=== PATIENT | female | born 1980 | race Caucasian/White ===

== ENCOUNTER 2018-01-26 15:23 | Emergency (ER) | payer OTHER ==
[2018-01-26] MEDS ORDERED: SODIUM CHLORIDE 0.9% 1,000 ML IV ONE (16:31)
[2018-01-26] MEDS ORDERED: diphenhydrAMINE 50 MG/ML 1 ML VIAL IVP STA (16:31)
[2018-01-26] MEDS ORDERED: KETOROLAC 30 MG/ML 1 ML VIAL IVP STA (16:31)
[2018-01-26] MEDS ORDERED: METOCLOPRAMIDE 5 MG/ML 2 ML VIAL IVP STA (16:31)
--- NOTE | 2018-01-26 16:55 | ED ---
Headache HPI - General Chief Complaint: Headache Stated Complaint: Migraine Time Seen by Provider: 01/26/18 16:20 Source: patient, RN notes reviewed Mode of arrival: ambulatory Limitations: no limitations - History of Present Illness Initial Comments: This a 37-year-old female presents emergency Department chief complaint of a headache. Patient states she has history of migraines and seizures. Patient states that she did try her Imitrex and multiple other her car medications no relief. She states it feels that her typical migraine headache which is more diffuse in nature. Denies any fever, chills or neck stiffness. Patient states that she has had nausea and vomiting. Patient states that she has not seen a neurologist recently there was scheduling to be seen again secondary to increase in headaches. Patient states that she's had recent CAT scan secondary to concussion. Patient denies any blurred vision, focal weakness, dizziness, difficulty ambulate in. - Related Data Home Medications Medication Instructions Recorded Confirmed Cyclobenzaprine [Flexeril] 5 mg PO DAILY 01/26/18 01/26/18 Levothyroxine Sodium 100 mcg PO DAILY 01/26/18 01/26/18 Mesal/Menth/Camph/S[place] Fir 1 inhalation NASAL DAILY 01/26/18 01/26/18 [Vicks Vapoinhaler] SUMAtriptan SUCCINATE [Imitrex] 50 mg PO DAILY PRN 01/26/18 01/26/18 Allergies Allergy/AdvReac Type Severity Reaction Status Date / Time No Known Allergies Allergy Verified 01/26/18 17:02 Review of Systems ROS Statement: Those systems with pertinent positive or pertinent negative responses have been documented in the HPI. ROS Other: All systems not noted in ROS Statement are negative. Past Medical History Past Medical History: Seizure Disorder Additional Past Medical History / Comment(s): migraines, concussion History of Any Multi-Drug Resistant Organisms: None Reported Past Surgical History: Tubal Ligation Past Psychological History: No Psychological Hx Reported Smoking Status: Current every day smoker Past Alcohol Use History: Occasional Past Drug Use History: Marijuana General Exam Limitations: no limitations General appearance: alert, in no apparent distress Head exam: Present: atraumatic, normocephalic, normal inspection Eye exam: Present: normal appearance, PERRL, EOMI. Absent: scleral icterus, conjunctival injection, periorbital swelling ENT exam: Present: normal exam, normal oropharynx, mucous membranes moist, TM's normal bilaterally, normal external ear exam Neck exam: Present: normal inspection, full ROM. Absent: tenderness, meningismus, lymphadenopathy Respiratory exam: Present: normal lung sounds bilaterally. Absent: respiratory distress, wheezes, rales, rhonchi, stridor Cardiovascular Exam: Present: regular rate, normal rhythm, normal heart sounds. Absent: systolic murmur, diastolic murmur, rubs, gallop, clicks Neurological exam: Present: alert, oriented X3, CN II-XII intact, reflexes normal, other ([id number] intact bilaterally without overshooting). Absent : motor sensory deficit Skin exam: Present: warm, dry, intact, normal color. Absent: rash Course Vital Signs 01/26/18 15:35 Temperature 98.0 F Pulse Rate 71 Respiratory 18 Rate Blood Pressure 135/75 O2 Sat by Pulse 99 Oximetry - Reevaluation(s) Reevaluation #1: 01/26/18 17:16 Patient reevaluated at this time and states that she feels improved. Medical Decision Making - Medical Decision Making 29-year-old female presented for headache. Patient was given Benadryl, Reglan and Toradol and states that she feels 100% better. Patient will be discharged. Patient had normal neuro exam. Disposition Clinical Impression: Migraine Disposition: HOME SELF-CARE Condition: Stable Instructions: Acute Headache (ED) Additional Instructions: Please return to the Emergency Department if symptoms worsen or any other concerns. Is patient prescribed a controlled substance at d/c from ED?: No Referrals: Nonstaff,Physician [REFERRING] - 1-2 days Time of Disposition: 17:16
[2018-01-26 17:47] VITALS: BP 122/70; PULSE 64; RESP 16; TEMP 98
== END 2018-01-26 17:47 | disposition home or self-care (01) ==
LOC: EC 15:23
DX: G43.909 Migraine, unspecified, not intractable, without status migrainosus (principal); F17.200 Nicotine dependence, unspecified, uncomplicated; Z79.899 Other long term (current) drug therapy
CPT/HCPCS: 99283; 96374; 96375 ×2; 96361; J1200; J2765; J1885